=== PATIENT | female | born 1940 | race Caucasian/White ===

== ENCOUNTER 2022-02-04 08:19 | Emergency (ER) | payer MEDICARE, OTHER ==
[~2022-02-04] VITALS: Ht 160 cm; Wt 66.2 kg
[~2022-02-04 08:19] MED LIST: ASPIRIN EC325 MG PO; ASPIRIN EC81 MG PO; CITRACAL-VIT D1 EAC1 PO; GLUCOSAMINE HC500 MG PO; HYDROCODON-ACE1 EA10 PO; LEVOTHROID50 MCG PO; MULTIVITAMINS1 EAC7 PO; OMEGA-3 + VITA1 EAC1 PO; OMEPRAZOLE40 MG PO; RED YEAST RICE600 MG PO; TIROSINT88 MCG PO; VITAMIN B COMP1 EACH PO; VITAMIN C500 M1 PO
== END 2022-02-04 09:40 | disposition home or self-care (01) ==
LOC: ED 08:19
DX: S05.01XA Injury of conjunctiva and corneal abrasion without foreign body, right eye, initial encounter (principal); K21.9 Gastro-esophageal reflux disease without esophagitis; Z79.899 Other long term (current) drug therapy; Z79.82 Long term (current) use of aspirin; X58.XXXA Exposure to other specified factors, initial encounter
CPT/HCPCS: 99283; A9270

== ENCOUNTER 2024-11-29 08:14 | Emergency (ER) | payer MEDICARE, OTHER ==
[~2024-11-29] VITALS: Ht 160 cm; Wt 68.5 kg
[2024-11-29] MEDS ORDERED: ACETAMINOPHEN 500 MG TAB PO ONE (09:00)
[2024-11-29] MEDS ORDERED: LIDOCAINE HCL 4% 1 EACH PATCH TD ONE (10:30)
[2024-11-29 10:35] VITALS: BP 138/66
== END 2024-11-29 10:35 | disposition home or self-care (01) ==
LOC: ED 08:14
DX: S22.080A Wedge compression fracture of T11-T12 vertebra, initial encounter for closed fracture (principal); W17.89XA Other fall from one level to another, initial encounter; K21.9 Gastro-esophageal reflux disease without esophagitis; Z79.82 Long term (current) use of aspirin; Z79.899 Other long term (current) drug therapy; Z79.890 Hormone replacement therapy
CPT/HCPCS: 70450; 72070; 72100; 99284-25; A9270